=== PATIENT | male | born 1955 | race Caucasian/White ===

== ENCOUNTER 2018-01-26 15:28 | Emergency (ER) | payer MEDICARE, MEDICAID ==
[~2018-01-26] VITALS: Ht 175.3 cm; Wt 84.9 kg
[2018-01-26 15:30] VITALS: BP 158/67
== END 2018-01-26 17:21 | disposition home or self-care (01) ==
LOC: ED 17:15
DX: M19.072 Primary osteoarthritis, left ankle and foot (principal); K21.9 Gastro-esophageal reflux disease without esophagitis
CPT/HCPCS: 99284